=== PATIENT | male | born 1955 | race Two or more races ===

== ENCOUNTER 2018-11-02 04:57 | Emergency (ER) | payer BC, OTHER ==
--- NOTE | 2018-11-02 05:30 | PDOC ---
History of Present Illness - General Chief Complaint: Cold Symptoms Stated Complaint: FLU LIKE SYPMTOMS Time Seen by Provider: 11/02/18 05:29 Past History - Past Medical History Allergies/Adverse Reactions: Allergies Allergy/AdvReac Type Severity Reaction Status Date / Time No Known Allergies Allergy Verified 11/02/18 05:51 Home Medications: Ambulatory Orders Amlodipine Besylate [Norvasc -] 5 mg PO DAILY 05/01/14 Valsartan [Diovan] 320 mg PO DAILY 05/01/14 Atorvastatin Ca [Lipitor] 10 mg PO HS 12/14/14 Colchicine [Colcrys] 0.6 mg PO DAILY 12/14/14 Metoprolol Succinate [Toprol XL -] 50 mg PO DAILY 12/15/14 Rivaroxaban [Xarelto -] 20 mg PO DAILY 12/15/14 Anemia: No Asthma: No Cancer: No Cardiac Disorders: Yes (AFIB) CVA: No COPD: No CHF: No Dementia: No Diabetes: Yes GI Disorders: No Disorders: No HTN: Yes Hypercholesterolemia: Yes Liver Disease: No Seizures: No Thyroid Disease: No - Surgical History Cardiac Surgery: No Neurologic Surgery: No Orthopedic Surgery: Yes (LEFT SHOULDER ARTHROSCOPY; RIGHT WRIST) - Suicide/Smoking/Psychosocial Hx Smoking History: Never smoked Have you smoked in the past 12 months: Yes Cigars Per Day: 1 Hx Alcohol Use: Yes Drug/Substance Use Hx: No Substance Use Type: Alcohol Hx Substance Use Treatment: No ED Treatment Course - RADIOLOGY Radiology Studies Ordered: Category Date Time Status CHEST X-RAY PORTABLE* [RAD] Stat Radiology 11/02/18 05:30 Ordered Medical Decision Making - Medical Decision Making 11/02/18 06:18 CXR official result pending; I see no pneumonia; there are 2 small air bronchograms. Pt has Flu culture pending. IV will be placed and CBC and chem pending. *DC/Admit/Observation/Transfer - Discharge Dispostion Condition at time of disposition: Fair - Referrals Referrals: Gabriel Vang MD [Primary Care Provider] - - Patient Instructions - Post Discharge Activity
[2018-11-02 05:51] VITALS: BP 102/73; PULSE 110; TEMP 98.4; BMI 29.5
[2018-11-02] MEDS ORDERED: SODIUM CHLORIDE 0.9% 500 ML INFUS.BAG IV ONE (06:12)
[2018-11-02 07:03] LABS: BASO % 0.6 % (0-2.0); EOS % 1.1 % (0-4.5); HEMATOCRIT 40.6 % (35.4-49); HEMOGLOBIN 14.2 GM/dL (11.7-16.9); LYMPH % 21.4 % (8-40); MCH 30.2 pg (25.7-33.7); MEAN CELL VOLUME 86.3 fl (80-96); MEAN PLT VOLUME 10.3 fl (7.5-11.1); MONO % 16.4 % (3.8-10.2); NEUT % 60.5 % (42.8-82.8); PLATELET COUNT 152 K/MM3 (134-434); RDW 13.6 % (11.9-15.9); WHITE BLOOD COUNT 4.4 K/mm3 (4.0-10.0)
[2018-11-02 07:31] LABS: ALBUMIN 3.6 g/dl (3.4-5.0); ALK PHOS 56 U/L (45-117); ANION GAP 7 MMOL/L (8-16); BILIRUBIN,TOTAL 0.2 mg/dL (0.2-1); BLOOD UREA NITROGEN 26 mg/dL (7-18); CALCIUM 8.6 mg/dL (8.5-10.1); CHLORIDE 99 mmol/L (98-107); CO2 29 mmol/L (21-32); CREATININE 1.3 mg/dL (0.55-1.3); GLUCOSE,RANDOM 139 mg/dL (74-106); POTASSIUM 4.3 mmol/L (3.5-5.1); SGOT/AST 29 U/L (15-37); SGPT/ALT 27 U/L (13-61); SODIUM 135 mmol/L (136-145); TOT PROT 6.8 g/dl (6.4-8.2)
--- NOTE | 2018-11-02 07:34 | PDOC ---
*Physical Exam - Vital Signs Last Vital Signs Temp Pulse Resp BP Pulse Ox 98.4 F 110 H 17 102/73 96 11/02/18 04:57 11/02/18 04:57 11/02/18 04:57 11/02/18 04:57 11/02/18 04:57 ED Treatment Course - LABORATORY CBC & Chemistry Diagram: 11/02/18 06:50 11/02/18 06:50 - ADDITIONAL ORDERS Additional order review: Laboratory Results 11/02/18 06:50 Sodium 135 L Potassium 4.3 Chloride 99 Carbon Dioxide 29 Anion Gap 7 L BUN 26 H Creatinine 1.3 Creat Clearance w eGFR 55.94 Random Glucose 139 H Calcium 8.6 Total Bilirubin 0.2 AST 29 ALT 27 Alkaline Phosphatase 56 Total Protein 6.8 Albumin 3.6 - Medications Given in the ED: ED Medications Discontinued Medications Generic Name Dose Route Start Last Admin Trade Name Freq PRN Reason Stop Dose Admin Sodium Chloride 1,000 ml 11/02/18 06:12 11/02/18 07:30 Normal Saline - IV 11/02/18 06:13 1,000 ml ONCE ONE Administration Medical Decision Making - Medical Decision Making 11/02/18 07:33 Care transferred to ri at 7am shift change. Presented with flu-like symptoms. Patient found to be positive for flu A. Will reassess s/p IV fluids. 11/02/18 09:14 Pt improved with IV fluids. Will give robitussin AC for cough. Inhaler as needed for wheezing. Stable for DC home. *DC/Admit/Observation/Transfer Diagnosis at time of Disposition: Influenza - Discharge Dispostion Disposition: HOME Condition at time of disposition: Stable Decision to Admit order: No - Prescriptions Prescriptions: Albuterol Sulfate Inhaler - [Ventolin HFA Inhaler -] 1 - 2 inh PO QID #1 inhaler Guaifenesin AC [Robitussin AC] 5 ml PO Q6H PRN #60 ml MDD 20 mL PRN Reason: Cough - Referrals Referrals: Gabriel Vang MD [Primary Care Provider] - - Patient Instructions Printed Discharge Instructions: DI for Influenza -- Adult - Post Discharge Activity
== END 2018-11-02 09:43 | disposition home or self-care (01) ==
LOC: JER 04:57
DX: J09.X2 Influenza due to identified novel influenza A virus with other respiratory manifestations (principal); I10 Essential (primary) hypertension; E78.00 Pure hypercholesterolemia, unspecified; I48.91 Unspecified atrial fibrillation; Z79.01 Long term (current) use of anticoagulants
CPT/HCPCS: 36415; 71045-TC-FY; 80053; 85025; 87804; 99281-25

== ENCOUNTER 2021-02-28 21:09 | Observation (INO) | payer BC, OTHER ==
[2021-02-28] MEDS ORDERED: SODIUM CHLORIDE 0.9% 500 ML INFUS.BAG IV ONE (21:49)
[2021-02-28 21:50] VITALS: BMI 27.1
[2021-02-28] MEDS ORDERED: ONDANSETRON 4 MG/2 ML VIAL IVPUSH ONE (21:50)
[2021-02-28] MEDS ORDERED: ONDANSETRON 4 MG/2 ML VIAL ONE (21:50)
[2021-02-28 22:38] LABS: HEMATOCRIT 40.4 % (35.4-49); HEMOGLOBIN 13.5 GM/dL (11.7-16.9); MCH 29.2 pg (25.7-33.7); MCHC 33.3 g/dl (32.0-35.9); MEAN CELL VOLUME 87.7 fl (80-96); MEAN PLT VOLUME 11.9 fl (7.5-11.1); PLATELET COUNT 182 K/MM3 (134-434); RBC 4.61 M/mm3 (4.00-5.60); RDW 13.2 % (11.9-15.9); WHITE BLOOD COUNT 11.1 K/mm3 (4.0-10.0)
[2021-02-28 23:00] LABS: CALCIUM 9.5 mg/dL (8.5-10.1)
[2021-02-28 23:01] LABS: ALBUMIN 4.2 g/dl (3.4-5.0); BLOOD UREA NITROGEN 18.7 mg/dL (7-18)
[2021-02-28] MEDS ORDERED: POTASSIUM CHLORIDE TABS 20 MEQ TABLET.ER (FP) PO ONE (23:01)
[2021-02-28 23:04] LABS: CREATININE 1.5 mg/dL (0.55-1.3)
[2021-02-28 23:05] LABS: BILIRUBIN,TOTAL 0.7 mg/dL (0.2-1); TOT PROT 7.2 g/dl (6.4-8.2)
[2021-02-28 23:12] LABS: LACTIC ACID 3.6 mmol/L (0.4-2.0)
[2021-02-28] MEDS ORDERED: METOCLOPRAMIDE HCL INJECTION 10 MG/2 ML VIAL IVPUSH ONE (23:19)
[2021-02-28] MEDS ORDERED: METOCLOPRAMIDE HCL INJECTION 10 MG/2 ML VIAL ONE (23:21)
[2021-03-01] MEDS ORDERED: POTASSIUM CHLORIDE TABS 20 MEQ TABLET.ER (FP) PO ONE (01:49)
[2021-03-01] MEDS ORDERED: SODIUM CHLORIDE 1,000 ML IV STA (02:05)
[2021-03-01 02:31] LABS: MAGNESIUM 1.6 mg/dL (1.8-2.4)
[2021-03-01] MEDS: KCL 10 MEQ IVPB 10 MEQ/100 ML INFUS.BAG IVPB SCH ×3 (02:42→05:30)
[2021-03-01 02:46] LABS: BASO % 0.5 % (0-2.0); HEMATOCRIT 38.5 % (35.4-49); HEMOGLOBIN 12.8 GM/dL (11.7-16.9); LYMPH % 5.2 % (8-40); MCH 29.3 pg (25.7-33.7); MCHC 33.2 g/dl (32.0-35.9); MEAN CELL VOLUME 88.2 fl (80-96); MEAN PLT VOLUME 11.5 fl (7.5-11.1); MONO % 7.2 % (3.8-10.2); NEUT % 87.1 % (42.8-82.8); PLATELET COUNT 159 K/MM3 (134-434); RBC 4.37 M/mm3 (4.00-5.60); RDW 13.2 % (11.9-15.9); WHITE BLOOD COUNT 13.2 K/mm3 (4.0-10.0)
[2021-03-01] MEDS ORDERED: KCL 10 MEQ IVPB 10 MEQ/100 ML INFUS.BAG IVPB ONE (03:35)
[2021-03-01] MEDS ORDERED: MAGNESIUM SULF 50% (8.12 MEQ/2 ML-1 GM VIAL) IVPB ONE ×2 (05:17→07:15)
[2021-03-01 07:15] LABS: BASO % 0.1 % (0-2.0); HEMATOCRIT 39.2 % (35.4-49); HEMOGLOBIN 12.9 GM/dL (11.7-16.9); LYMPH % 8.2 % (8-40); MCH 29.3 pg (25.7-33.7); MEAN CELL VOLUME 88.6 fl (80-96); MEAN PLT VOLUME 11.5 fl (7.5-11.1); MONO % 10.9 % (3.8-10.2); NEUT % 80.8 % (42.8-82.8); PLATELET COUNT 167 K/MM3 (134-434); RBC 4.42 M/mm3 (4.00-5.60); RDW 13.6 % (11.9-15.9); WHITE BLOOD COUNT 16.3 K/mm3 (4.0-10.0)
[2021-03-01 07:43] LABS: ALBUMIN 3.9 g/dl (3.4-5.0); BLOOD UREA NITROGEN 19.4 mg/dL (7-18); CALCIUM 8.8 mg/dL (8.5-10.1); MAGNESIUM 1.8 mg/dL (1.8-2.4)
[2021-03-01] MEDS ORDERED: MAGNESIUM 2GM/50ML STERILE WATER IVPB IVPB ONE (07:45)
[2021-03-01 07:46] LABS: CREATININE 1.3 mg/dL (0.55-1.3)
[2021-03-01 07:48] LABS: BILIRUBIN,TOTAL 0.6 mg/dL (0.2-1); TOT PROT 6.6 g/dl (6.4-8.2)
[2021-03-01] MEDS ORDERED: APIXABAN 5 MG TABLET PO SCH (10:00)
[2021-03-01] MEDS: LACTATED RINGERS SOLUTION 1,000 ML/1,000 ML INFUS.BAG IV SCH (11:39)
[2021-03-01] MEDS: PANTOPRAZOLE 40 MG TABLET PO SCH (16:47)
[2021-03-01 17:15] LABS: HEMATOCRIT 36.8 % (35.4-49); HEMOGLOBIN 12.2 GM/dL (11.7-16.9); MCH 29.3 pg (25.7-33.7); MCHC 33.2 g/dl (32.0-35.9); MEAN CELL VOLUME 88.1 fl (80-96); MEAN PLT VOLUME 10.8 fl (7.5-11.1); PLATELET COUNT 149 K/MM3 (134-434); RBC 4.18 M/mm3 (4.00-5.60); RDW 13.5 % (11.9-15.9); WHITE BLOOD COUNT 12.5 K/mm3 (4.0-10.0)
[2021-03-01 18:10] LABS: PH,URINE 5.5 (5.0-8.0); URINE APPEARANCE CLEAR; URINE BILIRUBIN NEGATIVE (NEGATIVE); URINE COLOR YELLOW; URINE GLUCOSE (UA) NEGATIVE (NEGATIVE); URINE KETONE NEGATIVE (NEGATIVE); URINE LEUK ESTERASE NEGATIVE (NEGATIVE); URINE NITRITE NEGATIVE (NEGATIVE); URINE PROTEIN NEGATIVE (NEGATIVE); URINE UROBILINOGEN 0.2 mg/dL (0.2-1.0)
[2021-03-01 18:25] LABS: METHADONE, UR NEGATIVE ng/ml (CUTOFF=300); URINE AMPHETAMINES NEGATIVE ng/ml (CUTOFF=500); URINE BARBITURATES NEGATIVE ng/ml (CUTOFF=200)
[2021-03-01 18:26] LABS: OPIATES, URI NEGATIVE ng/ml (CUTOFF=300); PHENCYCLIDINE,URINE NEGATIVE ng/ml (CUTOFF=25); URINE BENZODIAZEPINES NEGATIVE ng/ml (CUTOFF=200)
[2021-03-01] MEDS ORDERED: ONDANSETRON 4 MG/2 ML VIAL IVPUSH ONE (18:27)
[2021-03-01 18:33] LABS: COCAINE, UR NEGATIVE ng/ml (CUTOFF=300)
[2021-03-01] MEDS ORDERED: MELATONIN 5 MG TABLETS PO SCH (22:00)
[2021-03-02] MEDS: LACTATED RINGERS SOLUTION 1,000 ML/1,000 ML INFUS.BAG IV SCH ×2 (01:00→10:03)
[2021-03-02 06:33] VITALS: TEMP 98.7
[2021-03-02 07:27] LABS: HEMATOCRIT 35.6 % (35.4-49); MCH 29.5 pg (25.7-33.7); MCHC 33.6 g/dl (32.0-35.9); MEAN CELL VOLUME 87.8 fl (80-96); MEAN PLT VOLUME 12.2 fl (7.5-11.1); PLATELET COUNT 150 K/MM3 (134-434); RBC 4.06 M/mm3 (4.00-5.60); RDW 13.5 % (11.9-15.9); WHITE BLOOD COUNT 11.1 K/mm3 (4.0-10.0)
[2021-03-02 07:44] LABS: ALBUMIN 3.3 g/dl (3.4-5.0); BLOOD UREA NITROGEN 13.4 mg/dL (7-18); CALCIUM 8.1 mg/dL (8.5-10.1)
[2021-03-02 07:48] LABS: BILIRUBIN,TOTAL 0.5 mg/dL (0.2-1); TOT PROT 5.7 g/dl (6.4-8.2)
[2021-03-02] MEDS: PANTOPRAZOLE 40 MG TABLET PO SCH (10:04)
[2021-03-02 15:13] VITALS: BP 124/67; PULSE 69
== END 2021-03-02 15:51 | disposition home or self-care (01) ==
LOC: JER 21:09 → JERBED 23:53 → J4W 03-01 05:13
PROVIDERS: ADMIT Internal Medicine; ATTEND Internal Medicine
PROC: 3E0337Z Introduction of Electrolytic and Water Balance Substance into Peripheral Vein, Percutaneous Approach (ICD-10-PCS; principal; 2021-02-28)
PROC: 3E033GC Introduction of Other Therapeutic Substance into Peripheral Vein, Percutaneous Approach (ICD-10-PCS; 2021-02-28)
DX: K92.1 Melena (principal); E87.6 Hypokalemia; N17.9 Acute kidney failure, unspecified; Z98.890 Other specified postprocedural states; R11.2 Nausea with vomiting, unspecified; K57.90 Diverticulosis of intestine, part unspecified, without perforation or abscess without bleeding; E83.42 Hypomagnesemia; I48.91 Unspecified atrial fibrillation; E78.5 Hyperlipidemia, unspecified; I10 Essential (primary) hypertension; K29.70 Gastritis, unspecified, without bleeding; R79.89 Other specified abnormal findings of blood chemistry; Z87.891 Personal history of nicotine dependence; Z79.01 Long term (current) use of anticoagulants; M10.9 Gout, unspecified; D72.829 Elevated white blood cell count, unspecified; Z29.9 Encounter for prophylactic measures, unspecified
CPT/HCPCS: 36415; 71045-TC-FY; 74018-TC-FY; 74176-TC; 80053; 80307; 81003; 82272; 82550; 82553; 83036; 83605; 83735; 84484; 84550; 85025; 85027; 87040; 87086; 93005; 93010; 93306-TC; 99285-25; C9803; G0378; U0003; U0005